=== PATIENT | male | born 1965 | race Asian ===

== ENCOUNTER 2017-03-25 19:52 | Emergency (ER) | payer MEDICAID, OTHER ==
[~2017-03-25] VITALS: Ht 172.7 cm; Wt 61.2 kg
[2017-03-25] MEDS ORDERED: UNOBMED (19:57)
[2017-03-25 20:12] VITALS: BP 108/71
[2017-03-25 20:35] VITALS: BP 111/76
[2017-03-25] MEDS ORDERED: ZyPREXA Zydis 10mg tab ORAL ONE (20:45)
[2017-03-25] MEDS ORDERED: ZYPREXA ZYDIS10 MG ORAL (21:29)
[2017-03-25 21:35] VITALS: BP 108/71
--- NOTE | 2017-03-25 21:49 | Emergency Room Report ---
History of Present Illness General Chief Complaint: Behavioral Complaint Source: Patient Present Illness HPI The patient is a 51-year-old male with a stated history of schizophrenia and depression presenting for difficulty sleeping and auditory hallucinations. He states that both of these symptoms began one week prior. He states that he continues to hear a chanting of "[place]". He denies any suicidal ideation or self harm ideation. He is unsure of which medications he takes at home but thinks he may take Seroquel at night in a low dose which has not been helping. He last saw psychiatrist approximately 1 month prior. He denies any pain or other symptoms Allergies: Coded Allergies: No Known Allergies (Unverified , 03/25/17) Patient History Past Medical History: see triage record, psych hx Pertinent Family History: none Reviewed Nursing Documentation: PMH: Agreed, PSxH: Agreed Nursing Documentation-PMH Past Medical History: No History, Except For History Of Psychiatric Problem: Yes - DEPRESSION Review of Systems All Other Systems: negative except mentioned in HPI Physical Exam Vital Signs Date Time Temp Pulse Resp B/P Pulse Ox O2 Delivery O2 Flow Rate FiO2 03/25/17 19:54 98.2 103 18 108/71 98 Sp02 EP Interpretation: reviewed, normal General Appearance: no apparent distress, alert, GCS 15, non-toxic Head: normocephalic, atraumatic Eyes: bilateral eye PERRL, bilateral eye normal inspection ENT: hearing grossly normal, normal pharynx, no angioedema, normal voice Neck: full range of motion, supple/symm/no masses Respiratory: chest non-tender, lungs clear, normal breath sounds, speaking full sentences Cardiovascular #1: regular rate, rhythm, no edema Musculoskeletal: back normal, gait/station normal, normal range of motion, non- tender Neurologic: alert, oriented x3, responsive, motor strength/tone normal, sensory intact, normal gait, speech normal Psychiatric: memory normal, mood/affect normal, no suicidal/homicidal ideation Skin: normal color, no rash, warm/dry, well hydrated Medical Decision Making PA Attestation Dr. Mistry is my supervising physician. Patient management was discussed with my supervising physician Diagnostic Impression: Primary Impression: Schizophrenia Qualified Codes: F20.9 - Schizophrenia, unspecified ER Course The patient is a 51 yo M with a Hx of schizophrenia and depression currently medicated and seeing psychiatrist monthly presenting for auditory hallucinations and difficulty sleeping. DDx considered but not limited to: psychosis, SI, depression, anxiety, insomnia , among others PE:vitals WNL. NAD. Resting on gurney. A&Ox3 PERRL RRR. Lungs CTA bilat. Dr. Mistry has spoken with Dr. Weinstein regarding the patient. She recommends that the patient start taking Zyprexa and followup with psychiatry ER precautions given and he is also given a referral to seek care at [facility] if he is unable to see his psychiatrist within the next 2 -3 days. Last Vital Signs Date Time Temp Pulse Resp B/P Pulse Ox O2 Delivery O2 Flow Rate FiO2 03/25/17 20:12 98.2 18 108/71 98 03/25/17 19:54 103 Status: improved Disposition: HOME, SELF-CARE Condition: Improved Scripts Olanzapine (Zyprexa Zydis) 10 Mg Tab.rapdis 10 MG ORAL DAILY, #15 TAB 0 Refills Prov: ANUM GUILLERMO 03/25/17 Patient Instructions: Schizophrenia, Insomnia Additional Instructions: I discussed my findings with the patient. All questions and concerns have been answered. Treatment and medication compliance have been addressed. I advised the patient that they need to follow up with PMD in 3-5 days. Return to ED if symptoms worsen, new symptoms arise, or if needed for any reason. Patient verbalized understanding of discharge instructions. Please followup with psychiatry as soon as possible. Referral for psychiatric urgent care given ANUM GUILLERMO Mar 25, 2017 21:49
== END 2017-03-25 21:35 | disposition home or self-care (01) ==
LOC: EDBD 19:52 → EMR 20:13
DX: F20.9 Schizophrenia, unspecified (principal); F32.9 Major depressive disorder, single episode, unspecified
CPT/HCPCS: 99283